=== PATIENT | female | born 1995 | race Caucasian/White ===

== ENCOUNTER 2017-08-18 15:29 | Emergency (ER) | payer OTHER ==
--- NOTE | 2017-08-18 15:57 | ER Document Report ---
HPI - HPI Patient complains to provider of: Sent by urgent care for a CT scan of the head Onset: Other - monday Onset/Duration: Sudden Pain Level: 3 Context: 22-year-old female is complaining of some intermittent dizziness, fatique, and nausea since she hit the top of her right head on a metal rack at 1 days while she was cleaning up Monday morning at 230. She went to an urgent care for drug screen because she completed the [employer] and she was sent here for CT scan of the head. She does not know when her last period is because it has been a regular. No vomiting or diarrhea. No dizziness at this time. No visual change. No vertigo. Tried to work last night but had to leave was feeling really weak. Associated Symptoms: None Exacerbated by: Denies Relieved by: Denies Similar symptoms previously: No Recently seen / treated by doctor: No - ROS ROS below otherwise negative: Yes Systems Reviewed and Negative: Yes All other systems reviewed and negative Past Medical History - General Information source: Patient - Social History Smoking Status: Never Smoker Frequency of alcohol use: None Drug Abuse: None Lives with: Family Family History: Reviewed & Not Pertinent - Medical History Medical History: Negative Renal/ Medical History: Reports: Other - Recently treated for chlamydia Surgical Hx: Negative Vertical Provider Document - CONSTITUTIONAL Agree With Documented VS: Yes - INFECTION CONTROL TRAVEL OUTSIDE OF THE [place] IN LAST 30 DAYS: No - HEENT HEENT: Atraumatic, Normocephalic, PERRLA. negative: Tympanic Membrane Red Notes: No hemotympanum, no rhinorrhea, no mcclellan sign, no periorbital ecchymosis - NECK Neck: Supple - RESPIRATORY Respiratory: Breath Sounds Normal, No Respiratory Distress - CARDIOVASCULAR Cardiovascular: Regular Rate, Regular Rhythm - MUSCULOSKELETAL/EXTREMETIES Musculoskeletal/Extremeties: MAEW - NEURO Level of Consciousness: Awake, Alert, Appropriate Motor/Sensory: No Motor Deficit, No Sensory Deficit Notes: Neurological exam is normal, cerebellar exam normal - DERM Integumentary: No Rash Course - Re-evaluation Re-evalutation: 08/18/17 15:56 The patient's neurological exam is normal, when I went to get her urine cup she followed me and she did have some dizziness without vertigo very mild and escorted her to the bathroom to get a urinalysis. She was recently treated and her sexual partner for chlamydia. 08/18/17 16:[address] Macdonald called and states that she has basal ganglia calcifications and questionable MELAS and needs referral to neurologist. I will draw some basic lab work and a lactic acid because MELAS can cause lactic acidosis 08/18/17 17:56 test is negative the CBC is normal 3+ bacteria in the urine urine culture is pending there is only 2 RBCs and 7 WBCs. Lactic acid had to be redrawn because chemistry did not do what they were supposed to do with the sample in the lab. 08/18/17 18:20 Lactic acid is normal - Vital Signs Vital signs: Temp Pulse Resp BP Pulse Ox 99.0 F 91 16 122/68 100 08/18/17 15:33 08/18/17 15:33 08/18/17 15:33 08/18/17 15:33 08/18/17 15:33 - Laboratory Result Diagrams: 08/18/17 16:50 08/18/17 16:50 Discharge - Discharge Clinical Impression: Dizziness, Nausea, Basal cell ganglia calcifications Head injury Qualifiers: Encounter type: initial encounter Qualified Code(s): S09.90XA - Unspecified injury of head, initial encounter Condition: Good Disposition: HOME, SELF-CARE Instructions: Acetaminophen, Dizziness ([facility]), Nausea or Vomiting, Nonspecific ( [facility]), Post-Concussion Syndrome ([facility]) Additional Instructions: Copy of labs and imaging given to you call Monday for an appointment with a neurologist on Monday concerning what they found on the CT scan of the head Return to the emergency room for any worsening of the symptoms Urine culture is pending, you had 3+ bacteria in the urine but minimal WBCs so I do not think that this is a urinary tract infection. Referrals: CHESTER MUIR MD [NO LOCAL MD] - Follow up in 3-5 days
--- NOTE | 2017-08-18 16:32 | RADIOLOGY REPORT (SQ) ---
EXAM DESCRIPTION: CT HEAD WITHOUT COMPLETED DATE/TIME: 08/18/2017 4:16 pm REASON FOR STUDY: head injurym concussive sx COMPARISON: None. TECHNIQUE: Axial images acquired through the brain without intravenous contrast. Images reviewed wi th bone, brain and subdural windows. Additional sagittal and coronal reconstructions were generated. Images stored on PACS. All CT scanners at this facility use dose modulation, iterative reconstruction, and/or weight based d osing when appropriate to reduce radiation dose to as low as reasonably achievable (ALARA). [facility]: Dose Right [facility]: CareDose [facility]: Dose Right [facility]: Teradose 4D [facility]: Syntervention RADIATION DOSE: CT Rad equipment meets quality standard of care and radiation dose reduction techniq ues were employed. CTDIvol: 53.2 mGy. DLP: 964 mGy-cm. mGy. LIMITATIONS: None. FINDINGS: VENTRICLES: Normal size and contour. CEREBRUM: No masses. No acute hemorrhage. No midline shift. No evidence for acute infarction. Norm al parnell/white matter differentiation. No areas of low density in the white matter. There is bilatera l medial basal ganglia calcification, in a young patient this raises a question of MELAS or other met abolic abnormalities, calcium/phosphate imbalance, Fahr's disease or remote prior carbon monoxide poi soning. CEREBELLUM: No masses. No hemorrhage. No alteration of density. No evidence for acute infarction. EXTRAAXIAL SPACES: No fluid collections. No masses. ORBITS AND GLOBE: No intra- or extraconal masses. Normal contour of globe without masses. CALVARIUM: No fracture. PARANASAL SINUSES: No fluid or mucosal thickening. SOFT TISSUES: No mass or hematoma. OTHER: Cerebellar tonsils are at the foramen magnum, low lying. IMPRESSION: No acute intracranial changes. Bilateral basal ganglia calcification without other gross structural abnormalities on CT brain. Ques tion mitochondrial or other metabolic abnormalities. Low lying cerebellar tonsils. Findings discussed with Itzel Vaughn in the emergency room EVIDENCE OF ACUTE STROKE: NO. COMMENT: Quality ID # [id number]: Final reports with documentation of one or more dose reduction techniques (e.g., Automated exposure control, adjustment of the mA and/or kV according to patient size, use of iterative reconstruction technique) TECHNICAL DOCUMENTATION: JOB ID: [id number] [employer]- All Rights Reserved Reading location - IP/workstation name: [facility]
[2017-08-18 17:08] LABS: ABSOLUTE LYMPHOCYTES (AUTO) 1.5 10^3/uL (0.5-4.7); ABSOLUTE MONOCYTES (AUTO) 0.4 10^3/uL (0.1-1.4); ABSOLUTE NEUT (AUTO) 2.4 10^3/uL (1.7-8.2); BASOPHILS % (AUTO) 0.3 % (0-2); HEMATOCRIT 40.5 % (36.0-47.0); HEMOGLOBIN 14.2 g/dL (12.0-15.5); LYMPHOCYTES % (AUTO) 34.6 % (13-45); MEAN CORPUSCULAR HEMOGLOBIN 31.1 pg (27.0-33.4); MEAN CORPUSCULAR VOLUME 89 fl (80-97); MONOCYTES % (AUTO) 8.8 % (3-13); PLATELET COUNT 205 10^3/uL (150-450); RED BLOOD COUNT 4.55 10^6/uL (3.72-5.28); RED CELL DISTRIBUTION WIDTH 13.1 % (11.5-14.0); SEGMENTED NEUTROPHILS % (AUTO) 55.3 % (42-78); TOTAL CELLS COUNTED % (AUTO) 100 %; WHITE BLOOD COUNT 4.4 10^3/uL (4.0-10.5)
[2017-08-18 17:22] LABS: APPEARANCE,URINE CLOUDY; BILIRUBIN,URINE NEGATIVE (NEGATIVE); CALCIUM OXALATE CRYSTALS,URINE TOO NUMEROUS TO CNT /HPF; COLOR,URINE YELLOW; GLUCOSE, URINE NEGATIVE (NEGATIVE); KETONES,URINE NEGATIVE (NEGATIVE); LEUKOCYTE ESTERASE,URINE TRACE (NEGATIVE); NITRITE,URINE NEGATIVE (NEGATIVE); PROTEIN,URINE NEGATIVE (NEGATIVE); URINE SPECIFIC GRAVITY 1.023
[2017-08-18 17:38] LABS: ALANINE AMINOTRANSFERASE 23 U/L (9-52); ALBUMIN 5.1 g/dL (3.5-5.0); ALKALINE PHOSPHATASE 51 U/L (38-126); ANION GAP 12 (5-19); ASPARTATE AMINO TRANSFERASE 23 U/L (14-36); BILIRUBIN,DIRECT 0.3 mg/dL (0.0-0.4); BILIRUBIN,TOTAL 0.5 mg/dL (0.2-1.3); BLOOD UREA NITROGEN 11 mg/dL (7-20); CALCIUM 9.4 mg/dL (8.4-10.2); CARBON DIOXIDE 23 mmol/L (22-30); CHLORIDE 107 mmol/L (98-107); GLUCOSE 90 mg/dL (75-110); POTASSIUM 4.3 mmol/L (3.6-5.0); SODIUM 142.1 mmol/L (137-145); TOTAL PROTEIN 8.1 g/dL (6.3-8.2)
[2017-08-18 18:34] VITALS: BP 115/64
== END 2017-08-18 18:35 | disposition home or self-care (01) ==
LOC: ER 15:29
DX: R42 Dizziness and giddiness (principal); R53.83 Other fatigue; G23.8 Other specified degenerative diseases of basal ganglia; R11.0 Nausea; W22.09XA Striking against other stationary object, initial encounter; Y93.H9 Activity, other involving exterior property and land maintenance, building and construction; Y99.0 Civilian activity done for income or pay
CPT/HCPCS: 36415; 70450; 80053; 81001; 81025; 83605; 85025; 87086; 99284

== ENCOUNTER 2018-12-30 19:27 | Emergency (ER) | payer OTHER ==
[2018-12-30 19:32] VITALS: BP 123/84
[2018-12-30] MEDS ORDERED: CEFTRIAXONE INJ 250 MG VIAL IM ONE (20:02)
[2018-12-30] MEDS ORDERED: AZITHROMYCIN 250 MG TABLET PO ONE (20:02)
[2018-12-30] MEDS ORDERED: LIDOCAINE 1% INJ (10 MG/ML) 10 ML MDV INJ ONE (20:02)
--- NOTE | 2018-12-30 20:02 | ER Document Report ---
ED Medical Screen (RME) - General Chief Complaint: STD Exposure Stated Complaint: STD CHECK Time Seen by Provider: 12/30/18 19:51 Mode of Arrival: Ambulatory Information source: Patient Notes: Patient presents complaining of vaginal bleeding and concern about exposure to chlamydia. Patient does report some dysuria. I have greeted and performed a rapid initial assessment of this patient. A comprehensive ED assessment and evaluation of the patient, analysis of test results and completion of the medical decision making process will be conducted by additional ED providers. TRAVEL OUTSIDE OF THE [place] IN LAST 30 DAYS: No - Related Data Allergies/Adverse Reactions: No Known Allergies Allergy (Unverified 08/18/17 15:29) Home Medications: norethindrone Past Medical History - Social History Chew tobacco use (# tins/day): No Frequency of alcohol use: None Drug Abuse: None Renal/ Medical History: Denies: Hx Peritoneal Dialysis Psychiatric Medical History: Reports: Hx Bipolar Disorder Physical Exam - Vital signs Vitals: Temp Pulse Resp BP Pulse Ox 98.3 F 94 16 123/84 100 12/30/18 19:31 12/30/18 19:31 12/30/18 19:31 12/30/18 19:31 12/30/18 19:31 - General General appearance: Appears well, Alert In distress: None Course - Vital Signs Vital signs: Temp Pulse Resp BP Pulse Ox 98.3 F 94 16 123/84 100 12/30/18 19:31 12/30/18 19:31 12/30/18 19:31 12/30/18 19:31 12/30/18 19:31
--- NOTE | 2018-12-30 21:29 | ER Document Report ---
HPI - HPI Patient complains to provider of: dysuria Time Seen by Provider: 12/30/18 19:51 Onset: This morning Onset/Duration: Gradual Quality of pain: Burning Pain Level: 4 Context: Patient presents complaining of dysuria and vaginal bleeding. Patient states she had similar symptoms last month when she was treated for chlamydia. Patient does report having intercourse with the same person and does not think that they were treated. Patient would like to be tested for STI. Associated Symptoms: Other - Dysuria. denies: Fever, Nausea, Vomiting Exacerbated by: Denies Relieved by: Denies Similar symptoms previously: Yes Recently seen / treated by doctor: No - ROS ROS below otherwise negative: Yes Systems Reviewed and Negative: Yes All other systems reviewed and negative - CONSTITUTIONAL Constitutional: DENIES: Fever - EENT EENT: DENIES: Sore Throat - GASTROINTESTINAL Gastrointestinal: DENIES: Abdominal Pain, Nausea - URINARY Urinary: REPORTS: Dysuria - REPRODUCTIVE Reproductive: REPORTS: Abnormal bleeding / discharge - MUSCULOSKELETAL Musculoskeletal: DENIES: Extremity pain - DERM Skin Color: Normal Skin Problems: None Past Medical History - General Information source: Patient - Social History Smoking Status: Current Some Day Smoker Chew tobacco use (# tins/day): No Frequency of alcohol use: None Drug Abuse: None Family History: Reviewed & Not Pertinent Patient has suicidal ideation: No Patient has homicidal ideation: No Renal/ Medical History: Denies: Hx Peritoneal Dialysis GI Medical History: Reports: Hx Gastroesophageal Reflux Disease Psychiatric Medical History: Reports: Hx Bipolar Disorder Surgical Hx: Negative Vertical Provider Document - CONSTITUTIONAL Agree With Documented VS: Yes Exam Limitations: No Limitations General Appearance: WD/WN, No Apparent Distress - INFECTION CONTROL TRAVEL OUTSIDE OF THE [place] IN LAST 30 DAYS: No - HEENT HEENT: Atraumatic, Normocephalic - NECK Neck: Normal Inspection - RESPIRATORY Respiratory: Breath Sounds Normal, No Respiratory Distress - CARDIOVASCULAR Cardiovascular: Regular Rate, Regular Rhythm - BACK Back: Normal Inspection - MUSCULOSKELETAL/EXTREMETIES Musculoskeletal/Extremeties: MAEW - NEURO Level of Consciousness: Awake, Alert, Appropriate Motor/Sensory: No Motor Deficit - DERM Integumentary: Warm Course - Vital Signs Vital signs: Temp Pulse Resp BP Pulse Ox 98.3 F 94 16 123/84 100 12/30/18 19:31 12/30/18 19:31 12/30/18 19:31 12/30/18 19:31 12/30/18 19:31 Discharge - Discharge Clinical Impression: Concern about STD in female without diagnosis Condition: Stable Disposition: HOME, SELF-CARE Instructions: Azithromycin ([facility]), Rocephin ([facility]) Additional Instructions: Return immediately for any new or worsening symptoms Followup with your primary care provider, call tomorrow to make a followup appointment Safe sex practices We will call if you need any different treatment [facility] - Follow up as needed
[2018-12-30 21:39] LABS: APPEARANCE,URINE CLEAR; BILIRUBIN,URINE NEGATIVE (NEGATIVE); COLOR,URINE YELLOW; GLUCOSE, URINE NEGATIVE (NEGATIVE); KETONES,URINE NEGATIVE (NEGATIVE); PROTEIN,URINE 30 mg/dL (NEGATIVE); URINE SPECIFIC GRAVITY 1.014
[2018-12-30 21:48] LABS: CHLAM PCR NOT DETECTED (NOT DETECT)
== END 2018-12-30 22:14 | disposition home or self-care (01) ==
LOC: ER 19:27
DX: Z20.2 Contact with and (suspected) exposure to infections with a predominantly sexual mode of transmission (principal); R30.0 Dysuria; N93.9 Abnormal uterine and vaginal bleeding, unspecified; F17.200 Nicotine dependence, unspecified, uncomplicated
CPT/HCPCS: 81025; 81001; 87491; 87591; J0696